=== PATIENT | male | born 1990 | race Two or more races ===

== ENCOUNTER 2017-05-14 16:47 | Emergency (ER) | payer BC ==
[2017-05-14] MEDS ORDERED: Lidocaine 1% 10 ML MDV INJECT ONE (17:07)
[2017-05-14] MEDS ORDERED: Doxycycline 100 MG Cap PO ONE (17:07)
--- NOTE | 2017-05-14 17:13 | EDM.PDOC ---
ED HPI GENERAL MEDICAL PROBLEM - General Chief Complaint: Upper Extremity Injury/Pain Stated Complaint: NAIL IN HAND Time Seen by Provider: 05/14/17 17:07 Source of Information: Reports: Patient History Limitations: Reports: No Limitations - History of Present Illness INITIAL COMMENTS - FREE TEXT/NARRATIVE: 26-year-old male presents the ED with an acute nail gun injury to his left hand. He states he accidentally discharged the nail gun and shot is 16-gauge nail through his left hand between the first and second web space. This is a work-related injury. Injury occurred within the last hour. Tetanus toxoid is up- to-date about 3 years ago. He has normal sensation in his index finger and thumb. Onset: Today Onset Date: 05/14/17 Onset Time: 16:15 Duration: Minutes: Location: Reports: Upper Extremity, Left (Left hand. 16-gauge nail penetrates through the dorsal aspect of the hand traversing the first second web space of his hand through the radial aspect of the thenar musculature.) Quality: Reports: Ache Severity: Mild Improves with: Reports: None Worsens with: Reports: None Context: Reports: Trauma (Accidentally shot himself in the hand with a framing nailer.). Denies: Activity, Exercise, Lifting, Sick Contact Treatments MAINTENANCE CUSTODIAN: Reports: Other (see below) (None.) Left Hand Pain Score (Numeric/FACES): 3 - Related Data Allergies Allergy/AdvReac Type Severity Reaction Status Date / Time No Known Allergies Allergy Verified 05/14/17 16:55 Home Meds: Home Meds Doxycycline [Vibramycin 25 MG/5 ML Susp] 100 mg PO Q12H #16 bottle 05/14/17 [Rx] Past Medical History - Past Health History Medical/Surgical History: Denies Medical/Surgical History Social & Family History - Tobacco Use Smoking Status *Q: Never Smoker - Living Situation & Occupation Occupation: Employed Review of Systems - Review of Systems Review Of Systems: See Below Constitutional: Reports: No Symptoms Eyes: Reports: No Symptoms Ears: Reports: No Symptoms Nose: Reports: No Symptoms Mouth/Throat: Reports: No Symptoms Respiratory: Reports: No Symptoms Cardiovascular: Reports: No Symptoms GI/Abdominal: Reports: No Symptoms Genitourinary: Reports: No Symptoms Musculoskeletal: Reports: No Symptoms Skin: Reports: No Symptoms Neurological: Reports: No Symptoms Psychiatric: Reports: No Symptoms ED EXAM, GENERAL - Physical Exam Exam: See Below Exam Limited By: No Limitations General Appearance: Alert, WD/WN, No Apparent Distress Extremities: Other (Examination was limited to the left hand. He has a 16-gauge nail that has entered through the dorsal aspect of the hand between the first and second web space and exited through the web space on the volar surface. It is just proximal to the lateral border or all radial border of the thenar musculature. Patient has normal sensation to the index finger and thumb. He has full range of motion of the fingers as well suggesting no evidence of bony injury.) Neurological: Alert, Oriented, CN II-XII Intact, Normal Cognition Skin Exam: Warm, Dry, Intact, Normal Color, No Rash ED TRAUMA EXTREMITY PROCEDURES - Foreign Body Removal Indication:: Framing nail penetrating left hand between the first and second web space Consent Obtained: Patient Performing Doctor:: Christiano Baker Anesthesia Type: Local (Lidocaine 1%) Complications:: No Comments:: Nail was removed rather pain mostly after was anesthetized with 1% lidocaine. Utilized by Juan C to hold onto the end of the nail to allow extraction. Course - Vital Signs Last Recorded V/S: Last Vital Signs Temp 36.4 C 05/14/17 16:52 Pulse 65 05/14/17 16:52 Resp 18 05/14/17 16:52 BP 149/93 H 05/14/17 16:52 Pulse Ox 100 05/14/17 16:52 - Orders/Labs/Meds Orders: Active Orders 24 hr Category Date Time Status Hand Comp Min 3V Lt [CR] Stat Exams 05/14/17 17:05 Taken Meds: Medications Discontinued Medications Generic Name Dose Route Start Last Admin Trade Name Vinayq PRN Reason Stop Dose Admin Doxycycline Hyclate 200 mg 05/14/17 17:07 05/14/17 17:13 Vibramycin PO 05/14/17 17:08 200 mg ONETIME ONE Administration Lidocaine HCl 10 ml 05/14/17 17:07 05/14/17 17:13 Xylocaine 1% INJECT 05/14/17 17:08 10 ml ONETIME ONE Administration - Radiology Interpretation Free Text/Narrative:: 26-year-old male presents with a work-related injury. Accidentally shot himself with a framing nail or and the nail has penetrated his left hand. It penetrated between the first and second web space of his hand with no evidence of neurovascular injury clinically. X-ray will be obtained and then the exit and entry wounds anesthetized with 1% lidocaine and the nail will be removed. Will be placed on doxycycline 100 mg twice daily for 8 days to ensure no infection occurs. Tetanus toxoid is up-to-date. - Re-Assessments/Exams Free Text/Narrative Re-Assessment/Exam: 05/14/17 17:29 x-rays revealed a nail to the penetrated soft tissues only. No bony injuries. Infiltrated entry and x-ray wounds with 1% lidocaine. Was then able to remove the nail with the aid of vice advertising material distributor holding onto the nail tip. Appears the paper and blue better on the nail of also been extracted without much foreign material in the wound. Wound was then cleansed thoroughly with him running and under the tap water. Topical antibiotic and hand wrap applied. He will be placed on doxycycline 100 mg twice daily for 8 days to prevent any secondary infection. Follow-up if any infection occurs. Departure - Departure Time of Disposition: 17:30 Disposition: Home, Self-Care 01 Condition: Fair Clinical Impression: Puncture wound of left hand without complication Qualifiers: Encounter type: initial encounter Qualified Code(s): S61.432A - Puncture wound without foreign body of left hand, initial encounter - Discharge Information Prescriptions: Doxycycline [Vibramycin 25 MG/5 ML Susp] 100 mg PO Q12H #16 bottle Referrals: PCP,None [Primary Care Provider] - Forms: ED Department Discharge Additional Instructions: Evaluation in the emergency him today in regards to accidental work-related injury. Accidentally shot herself with a framing nail or in the nail penetrated the web space between the first and second fingers of your left hand. It is passed through soft tissues without any bony injuries. It may have just next part of the thenar muscles that control your thumb movement. This will heal without any consequence. The nail was removed under local anesthetic. Treatment is to daily cleanse the wounds with soap and water. Showering is okay but the wound should not be soaked under water until they are healed. Apply topical antibiotic to entry and exit wounds such as bacitracin or Polysporin once or twice daily and cover with a bandage until they are healed. Suggest oral antibiotic doxycycline 100 mg twice daily for the next 8 days to prevent secondary wound infection. Return to medical care if any signs of infection occur such as redness increased swelling pain or obvious pus. - My Orders Last 24 Hours: My Active Orders 05/14/17 17:05 Hand Comp Min 3V Lt [CR] Stat - Assessment/Plan Last 24 Hours: My Active Orders 05/14/17 17:05 Hand Comp Min 3V Lt [CR] Stat
--- NOTE | 2017-05-15 06:40 | CR ---
Left hand: Four views of the left hand were obtained. Metallic nail is projected within the soft tissues of the left hand. This occurs between the first and second metacarpals. No involvement of bone is seen. No fracture or other bony abnormality is seen. Soft tissue swelling is present. Impression: 1. Metallic nail projected within the soft tissues as noted above. No bony abnormality is seen. Diagnostic code #3
== END 2017-05-14 17:38 | disposition home or self-care (01) ==
LOC: JD.ED 16:47
DX: S61.442A Puncture wound with foreign body of left hand, initial encounter (principal); W29.4XXA Contact with nail gun, initial encounter; Y99.0 Civilian activity done for income or pay
CPT/HCPCS: 20520; 73130; 99283; A9270